=== PATIENT | female | born 1975 | race Caucasian/White ===

== ENCOUNTER 2017-05-24 06:54 | Outpatient (CLI) | payer OTHER ==
--- NOTE | 2017-05-25 09:15 | MMO ---
SCREENING MAMMOGRAPHY: DATE: 05/24/17. COMPARISON: 04/22/16. HISTORY: Screening mammogram. FINDINGS: The patient's mammogram is interpreted with the assistance of computer-aided detection. The breast parenchyma is heterogeneously dense, limiting mammographic assessment. There is no mass, distortion, or concerning calcification. IMPRESSION: BI-RADS 1 - negative. Recommend annual screening mammography. POS: ROCKY
== END 2017-05-24 06:55 | disposition home or self-care (01) ==
LOC: MAMMO 06:54
PROVIDERS: ATTEND Family Medicine
DX: Z12.31 Encounter for screening mammogram for malignant neoplasm of breast (principal)
CPT/HCPCS: 77067; G0202

== ENCOUNTER 2020-06-24 06:44 | Outpatient (CLI) | payer OTHER ==
[2020-06-24 16:53] LABS: Hemoglobin 14.3 g/dL (12.0-16.0); Mean Corpuscular HGB CONC 34.2 G/DL (32.0-36.0); Mean Corpuscular Hemoglobin 31.5 PG (27.0-33.0); Mean Corpuscular Volume 92.1 fl (80.0-100.0); Mean Platelet Volume 12.5 fl (7.4-10.4); Platelet Count 203 10x3/uL (130-400); RBC Distribution Width 12.1 % (11.5-14.5); Red Blood Cell (RBC) Count 4.54 10x6/uL (3.90-5.20)
[2020-06-24 17:21] LABS: BHCG - Serum Negative (NEGATIVE); Pregs Control Background? CLEAR/WHITE (CLR/WHITE); Pregs Control Bar Appear? YES (CONTROL BAR)
== END 2020-06-24 06:45 | disposition home or self-care (01) ==
LOC: LABBT 06:44
PROVIDERS: ATTEND Student in an Organized Health Care Education/Training Program
DX: Z01.812 Encounter for preprocedural laboratory examination (principal); N39.3 Stress incontinence (female) (male)
CPT/HCPCS: 84703; 85027; 86850; 86900; 86901

== ENCOUNTER 2020-06-29 10:01 | Day surgery (SDC) | payer OTHER ==
[2020-06-26 11:39] VITALS: BMI 32.5
[~2020-06-29 10:01] MED LIST: Dexamethasone 20 MG/5 ML VIAL ONE; Lidocaine 1% PF 5 ML VIAL ONE; Metoclopramide HCl 10 MG/2 ML VIAL ONE; Ondansetron PF 4 MG/2 ML Vial ONE; PROPOFOL 200 MG/20 ML VIAL ONE; Rocuronium Bromide 10 MG/ML (10ML VIAL) ONE
[2020-06-29] MEDS ORDERED: Gabapentin 300 MG CAP ONE (10:54)
[2020-06-29] MEDS ORDERED: Famotidine/PF 20 mg/2ml Vial ONE ×2 (10:54→10:55)
[2020-06-29] MEDS ORDERED: CeleCOXIB 100 MG CAP ONE (10:55)
[2020-06-29] MEDS ORDERED: Fentanyl 100 MCG/2 ML VIAL ONE (10:55)
[2020-06-29] MEDS ORDERED: Lidocaine 1% w/Epinephrine 1:100K 20 ML VIAL ONE (11:02)
--- NOTE | 2020-06-29 13:57 | OP ---
DATE OF PROCEDURE: 06/29/2020 PREOPERATIVE DIAGNOSIS: Stress urinary incontinence. POSTOPERATIVE DIAGNOSIS: Stress urinary incontinence. PROCEDURES PERFORMED: 1. Midurethral sling with [employer] Advantage Fit. 2. Cystoscopy. [facility] SURGEON: Tanna Hawkins CNM COMPLICATIONS: None. DRAINS: Blanco catheter. PATHOLOGY: None. ESTIMATED BLOOD LOSS: 30 mL. IVF: 1300 mL of crystalloid. URINE OUTPUT: 10 mL of clear urine. ANESTHESIA: General endotracheal. FINDINGS: On cystoscopy: Normal bladder mucosa. No lesions. No perforations. Sling present within the bladder. Ureteral efflux was noted bilaterally, that was vigorous. No other abnormalities within the bladder or urethra. Excellent hemostasis. DESCRIPTION OF PROCEDURE: The patient was taken to the operating room where general anesthesia was obtained without difficulty. The patient was prepped and draped in a sterile fashion in a dorsal lithotomy position. A Blanco catheter was placed in the bladder and a weighted speculum was placed in the vagina. The midurethra was grasped proximal and distally with 2 Allis clamps. The midurethra was infiltrated with 1% lidocaine with epi 10 mL. An incision was made over the midurethra with a #11 blade. Metzenbaums were used to dissect out the midurethral vaginal mucosa as well as the subpubic space bilaterally. The legs were placed in the low lithotomy position. The pubic bone exit sites were marked with a marking pen. A 60 mL of injectable saline was used to hydrodissect the retropubic space bilaterally. The Blanco catheter was deflated and a guidewire was placed within the catheter and the bladder was deviated initially to the patient's right side. The left side of the Advantage Fit [employer] sling was placed without difficulty, on hugging the pubic bone with the trocar. The sling sheath was then secured at the exit site at the pubic bone. The bladder was deviated to the contralateral side and the right side of the sling was then placed in the same fashion. The Blanco catheter was then removed out of the bladder. A 70 degree cystoscope was inserted into the bladder. The bladder was distended with saline and the above findings were noted. No abnormalities were noted. The cystoscope was removed and the Blanco catheter was replaced in the bladder. The sling was then tightened appropriately, ensuring not overtightening at the mid urethra. The sheath was then removed after the tab was cut in the midpoint and the mesh was cut at the pubic bone. Hemostasis was noted of the vaginal incision. The vaginal incision was then closed with 2-0 Vicryl in a running locking fashion. The mesh exit sites of the pubic bone were secured with Dermabond. All instruments were removed out of vagina. The patient tolerated the procedure well. Sponge, lap, and needle counts were correct x2. The patient was taken to recovery room in stable condition. The patient received Ancef 2 g prior to the procedure. Job ID: [id number]
== END 2020-06-29 15:35 | disposition home or self-care (01) ==
LOC: SDC 10:01
PROVIDERS: ATTEND Student in an Organized Health Care Education/Training Program
PROC: 0TSD0ZZ Reposition Urethra, Open Approach (ICD-10-PCS; principal; 2020-06-29)
DX: N39.3 Stress incontinence (female) (male) (principal); F17.210 Nicotine dependence, cigarettes, uncomplicated; F41.9 Anxiety disorder, unspecified; F32.9 Major depressive disorder, single episode, unspecified; F90.9 Attention-deficit hyperactivity disorder, unspecified type; G43.909 Migraine, unspecified, not intractable, without status migrainosus; Z79.899 Other long term (current) drug therapy
CPT/HCPCS: C1781; J0690; J1100; J2405; J2704; J2765; J3010; S0028

== ENCOUNTER 2021-11-03 15:55 | Inpatient (IN) | payer BC ==
[2021-11-03 16:54] LABS: Hemoglobin 14.8 g/dL (12.0-16.0); Mean Corpuscular HGB CONC 32.9 g/dL (32.0-36.0); Mean Corpuscular Hemoglobin 31.7 pg (27.0-31.0); Mean Corpuscular Volume 96.6 fL (78.0-98.0); Mean Platelet Volume 9.1 fL (7.4-10.4); Platelet Count 191 thou/uL (130-400); RBC Distribution Width 11.7 % (11.5-14.5); Red Blood Cell (RBC) Count 4.66 mill/uL (4.20-5.40); White Blood Cell (WBC) Count 20.1 thou/uL (4.8-10.8)
[2021-11-03 17:01] LABS: BHCG - Serum Negative (NEGATIVE); Pregs Control Background? CLEAR/WHITE (CLR/WHITE); Pregs Control Bar Appear? YES (CONTROL BAR)
[2021-11-03 17:05] LABS: ALT (SGPT) 15 U/L (8-55); AST (SGOT) 13 U/L (5-34); Albumin 4.5 g/dL (3.5-5.0); Alkaline Phosphatase 68 U/L (40-110); Anion Gap 13 mmol/L (10-20); BUN (Urea Nitrogen) 15 mg/dL (7.0-18.7); Bilirubin, Total 0.5 mg/dL (0.2-1.2); Calc. Creatinine Clearance 0 mL/min (70-130); Carbon Dioxide 19 mmol/L (22-29); Chloride 108 mmol/L (98-107); Globulin 2.8 g/dL (2.4-3.5); Glucose 105 mg/dL (70-105); Lipase 17 U/L (8-78); Potassium 3.6 mmol/L (3.5-5.1); Protein, Total 7.3 g/dL (6.0-8.3); Sodium 136 mmol/L (136-145)
[2021-11-03 17:10] LABS: Band 3 % (5-11); Lymphocytes 6 % (21-51); MDiff Complete? YES; Monocytes 4 % (0-10); Neutrophil 86 % (42-75); Platelet Morphology Comment Appears Adequate; RBC Morphology Normal; Reactive Lymphocytes 1 % (0-10)
[2021-11-03 17:32] LABS: Bacteria/HPF 2+ HPF (None Seen); Bilirubin Negative (Negative); Blood, Urine 3+ (Negative); Glucose, Urine (Dipstick) Normal (Negative); Ketone, Urine 40 mg/dL (Negative); Leukocyte 75 Leu/uL (Negative); Nitrite Negative (Negative); Protein, Urine (Dipstick) 70 mg/dL (Neg-Trace); RBC/HPF Greater than 50 HPF (0-3); Specific Gravity, Urine 1.033 (1.002-1.036); Urobilinogen Normal mg/dL (Less than 2); pH, Urine 5.5 (5.0-9.0)
[2021-11-03 17:34] LABS: Clarity Turbid (Clear)
[2021-11-03] MEDS ORDERED: Morphine 4 MG/ML VIAL ONE ×2 (17:47→18:43)
[2021-11-03] MEDS ORDERED: Ondansetron PF 4 MG/2 ML Vial ONE (17:48)
[2021-11-03] MEDS ORDERED: Ketorolac Tromethamine 30 MG/ML VIAL ONE (17:48)
[2021-11-03] MEDS ORDERED: Cefepime 2 GM VIAL ONE (18:14)
[2021-11-03] MEDS ORDERED: Vancomycin 1 GM/200 ML BAG ONE (18:14)
[2021-11-03] MEDS ORDERED: Acetaminophen 325 MG TAB PO PRN (20:15)
[2021-11-03] MEDS ORDERED: Ondansetron PF 4 MG/2 ML Vial IVP PRN (20:15)
[2021-11-03] MEDS ORDERED: Ondansetron ODT 4 MG TAB SL PRN (20:15)
[2021-11-03] MEDS: Morphine 4 MG/ML VIAL SLOW IVP PRN (20:37)
[2021-11-03] MEDS: Sodium Chloride 0.9% 1,000 ML IV SCH (20:38)
[2021-11-03 23:06] VITALS: BMI 35.3
[2021-11-04] MEDS: Morphine 4 MG/ML VIAL SLOW IVP PRN ×2 (00:43→06:34)
[2021-11-04] MEDS: Sodium Chloride 0.9% 1,000 ML IV SCH ×3 (02:57→18:07)
[2021-11-04] MEDS ORDERED: Ondansetron PF 4 MG/2 ML Vial IVP PRN (08:39)
[2021-11-04] MEDS ORDERED: Vancomycin 1 GM in Premix Bag 1 BAG IVPB SCH (09:00)
[2021-11-04] MEDS: HYDROcodone/Acetaminophen 7.5/325 mg Tablet PO PRN ×3 (09:18→18:24)
[2021-11-04] MEDS: Loratadine 10 MG TAB PO SCH (09:19)
[2021-11-04] MEDS: Cefepime 2 GM in Sodium Chloride 0.9% 100 ML IVPB SCH ×2 (09:19→19:58)
[2021-11-04] MEDS: Topiramate 25 MG TAB PO SCH ×2 (09:19→19:59)
[2021-11-04] MEDS: Vancomycin HCl 1.25 GM in Sodium Chloride 0.9% 250 ML 250 ML IVPB SCH ×2 (09:54→21:45)
[2021-11-04] MEDS: Acetaminophen 325 MG TAB PO PRN (12:18)
[2021-11-04 12:19] LABS: SARS-CoV-2 PCR by NAA Not Detected (NotDetected)
[2021-11-04] MEDS: Montelukast Sodium 10 mg Tablet PO SCH (19:59)
[2021-11-05] MEDS: HYDROcodone/Acetaminophen 7.5/325 mg Tablet PO PRN ×4 (00:07→18:31)
[2021-11-05] MEDS: Sodium Chloride 0.9% 1,000 ML IV SCH ×4 (03:55→19:11)
[2021-11-05] MEDS: Acetaminophen 325 MG TAB PO PRN ×2 (04:45→20:02)
[2021-11-05] MEDS ORDERED: Iopamidol 15 ML ONE (06:24)
[2021-11-05 06:48] LABS: Anion Gap 16 mmol/L (10-20); BUN (Urea Nitrogen) 27 mg/dL (7.0-18.7); Calc. Creatinine Clearance 113 mL/min (70-130); Calcium 8.3 mg/dL (7.8-10.44); Carbon Dioxide 16 mmol/L (22-29); Chloride 110 mmol/L (98-107); Glucose 88 mg/dL (70-105); Potassium 3.6 mmol/L (3.5-5.1); Sodium 138 mmol/L (136-145)
[2021-11-05 06:52] LABS: Band 34 % (5-11); Hemoglobin 12.7 g/dL (12.0-16.0); Lymphocytes 4 % (21-51); MDiff Complete? YES; Mean Corpuscular HGB CONC 33.4 g/dL (32.0-36.0); Mean Corpuscular Hemoglobin 32.4 pg (27.0-31.0); Mean Corpuscular Volume 97.2 fL (78.0-98.0); Monocytes 10 % (0-10); Neutrophil 52 % (42-75); Platelet Count 80 thou/uL (130-400); Platelet Morphology Comment Appears Decreased; RBC Distribution Width 11.9 % (11.5-14.5); RBC Morphology Normal; Red Blood Cell (RBC) Count 3.92 mill/uL (4.20-5.40); White Blood Cell (WBC) Count 31.9 thou/uL (4.8-10.8)
[2021-11-05] MEDS ORDERED: Fentanyl 100 MCG/2 ML VIAL ONE ×2 (07:17)
[2021-11-05] MEDS ORDERED: Dexamethasone 20 MG/5 ML VIAL ONE (07:39)
[2021-11-05] MEDS ORDERED: PROPOFOL 200 MG/20 ML VIAL ONE (07:39)
[2021-11-05] MEDS ORDERED: Lidocaine 1% PF 5 ML VIAL ONE (07:39)
[2021-11-05] MEDS ORDERED: Ondansetron PF 4 MG/2 ML Vial ONE (07:39)
[2021-11-05] MEDS ORDERED: PHENYLEPHRINE-NS 100 MCG/ML 10 ML SYRINGE ONE (07:39)
[2021-11-05] MEDS ORDERED: B & O ONE (07:56)
[2021-11-05 08:00] LABS: INR-International Normal Ratio 1.5; Prothrombin Time 18.3 sec (12.0-14.7)
[2021-11-05 08:01] LABS: Fibrinogen 498 mg/dL (253-463); Platelet Count 76 thou/uL (130-400)
[2021-11-05 08:03] LABS: PTT 53.8 sec (22.9-36.1)
[2021-11-05 08:18] LABS: D-Dimer Test Greater than 20.00 *mcg/mL (0.27-0.43)
[2021-11-05] MEDS ORDERED: Ondansetron HCl/PF 4 MG/2 ML Vial IVP PRN (08:20)
[2021-11-05] MEDS ORDERED: Promethazine HCl 25 MG/ML VIAL IM PRN (08:20)
[2021-11-05] MEDS ORDERED: Promethazine HCl 25 MG/ML VIAL IVPB PRN (08:20)
[2021-11-05] MEDS: Cefepime 2 GM in Sodium Chloride 0.9% 100 ML IVPB SCH ×2 (09:27→20:02)
[2021-11-05] MEDS: Topiramate 25 MG TAB PO SCH (09:35)
[2021-11-05] MEDS: Loratadine 10 MG TAB PO SCH (09:36)
[2021-11-05] MEDS: Vancomycin HCl 1.25 GM in Sodium Chloride 0.9% 250 ML 250 ML IVPB SCH (11:27)
[2021-11-05] MEDS: Montelukast Sodium 10 mg Tablet PO SCH (20:02)
[2021-11-06] MEDS: HYDROcodone/Acetaminophen 7.5/325 mg Tablet PO PRN ×3 (00:43→20:17)
[2021-11-06] MEDS: Sodium Chloride 0.9% 1,000 ML IV SCH ×3 (03:23→20:17)
[2021-11-06 06:29] LABS: Band 24 % (5-11); Hemoglobin 11.4 g/dL (12.0-16.0); Lymphocytes 12 % (21-51); MDiff Complete? YES; Mean Corpuscular HGB CONC 33.4 g/dL (32.0-36.0); Mean Corpuscular Hemoglobin 32.7 pg (27.0-31.0); Mean Corpuscular Volume 97.9 fL (78.0-98.0); Mean Platelet Volume 10.4 fL (7.4-10.4); Monocytes 3 % (0-10); Neutrophil 61 % (42-75); Platelet Count 73 thou/uL (130-400); Platelet Morphology Comment Appears Decreased; White Blood Cell (WBC) Count 27.5 thou/uL (4.8-10.8)
[2021-11-06 06:36] LABS: Anion Gap 12 mmol/L (10-20); BUN (Urea Nitrogen) 17 mg/dL (7.0-18.7); Calc. Creatinine Clearance 158 mL/min (70-130); Calcium 8.3 mg/dL (7.8-10.44); Carbon Dioxide 17 mmol/L (22-29); Chloride 114 mmol/L (98-107); Glucose 83 mg/dL (70-105); Potassium 3.7 mmol/L (3.5-5.1); Sodium 139 mmol/L (136-145)
[2021-11-06] MEDS: Loratadine 10 MG TAB PO SCH (09:07)
[2021-11-06] MEDS: Cefepime 2 GM in Sodium Chloride 0.9% 100 ML IVPB SCH ×2 (09:07→20:12)
[2021-11-06] MEDS ORDERED: Rizatriptan Benzoate 10 MG MLT TAB PO SCH (12:35)
[2021-11-06] MEDS: Montelukast Sodium 10 mg Tablet PO SCH (20:17)
[2021-11-07] MEDS: HYDROcodone/Acetaminophen 7.5/325 mg Tablet PO PRN ×3 (03:05→20:25)
[2021-11-07] MEDS: Melatonin 3 MG TAB PO PRN (03:06)
[2021-11-07 07:06] LABS: Anion Gap 10 mmol/L (10-20); BUN (Urea Nitrogen) 13 mg/dL (7.0-18.7); Calc. Creatinine Clearance 172 mL/min (70-130); Calcium 8.2 mg/dL (7.8-10.44); Carbon Dioxide 19 mmol/L (22-29); Chloride 115 mmol/L (98-107); Glucose 103 mg/dL (70-105); Potassium 3.7 mmol/L (3.5-5.1); Sodium 140 mmol/L (136-145)
[2021-11-07 08:02] LABS: Hemoglobin 10.6 g/dL (12.0-16.0); Mean Corpuscular HGB CONC 33.9 g/dL (32.0-36.0); Mean Corpuscular Hemoglobin 32.7 pg (27.0-31.0); Mean Corpuscular Volume 96.6 fL (78.0-98.0); Red Blood Cell (RBC) Count 3.25 mill/uL (4.20-5.40)
[2021-11-07 08:22] LABS: Eosinophils 1 % (0-10); Lymphocytes 20 % (21-51); MDiff Complete? YES; Mean Platelet Volume 10.2 fL (7.4-10.4); Monocytes 1 % (0-10); Neutrophil 78 % (42-75); Platelet Count 77 thou/uL (130-400); Platelet Morphology Comment Appears Decreased; RBC Distribution Width 11.8 % (11.5-14.5); White Blood Cell (WBC) Count 15.5 thou/uL (4.8-10.8)
[2021-11-07] MEDS: Loratadine 10 MG TAB PO SCH (09:13)
[2021-11-07] MEDS: Sodium Chloride 0.9% 1,000 ML IV SCH (09:19)
[2021-11-07] MEDS: Ciprofloxacin 500 MG TAB PO SCH (20:25)
[2021-11-07] MEDS: Montelukast Sodium 10 mg Tablet PO SCH (20:25)
[2021-11-07] MEDS ORDERED: Zolpidem Tartrate 5 MG TAB PO SCH (21:00)
[2021-11-08] MEDS: HYDROcodone/Acetaminophen 7.5/325 mg Tablet PO PRN (03:55)
[2021-11-08] MEDS: Melatonin 3 MG TAB PO PRN (03:59)
[2021-11-08] MEDS: Ciprofloxacin 500 MG TAB PO SCH (05:43)
[2021-11-08 07:00] LABS: Anion Gap 11 mmol/L (10-20); BUN (Urea Nitrogen) 9 mg/dL (7.0-18.7); Calc. Creatinine Clearance 177 mL/min (70-130); Calcium 7.5 mg/dL (7.8-10.44); Carbon Dioxide 20 mmol/L (22-29); Chloride 112 mmol/L (98-107); Glucose 115 mg/dL (70-105); Potassium 3.5 mmol/L (3.5-5.1); Sodium 139 mmol/L (136-145)
[2021-11-08 07:10] LABS: Hemoglobin 11.2 g/dL (12.0-16.0); Mean Corpuscular HGB CONC 33.6 g/dL (32.0-36.0); Mean Corpuscular Hemoglobin 32.2 pg (27.0-31.0); Mean Platelet Volume 9.5 fL (7.4-10.4); Platelet Count 85 thou/uL (130-400); RBC Distribution Width 11.8 % (11.5-14.5); Red Blood Cell (RBC) Count 3.47 mill/uL (4.20-5.40)
[2021-11-08] MEDS: Loratadine 10 MG TAB PO SCH (07:45)
[2021-11-08 07:47] VITALS: BP 130/80; TEMP 98.3
[2021-11-08 08:19] LABS: Band 1 % (5-11); Eosinophils 1 % (0-10); Lymphocytes 31 % (21-51); MDiff Complete? YES; Monocytes 5 % (0-10); Neutrophil 62 % (42-75); Platelet Morphology Comment Appears Decreased; Polychromasia SLIGHT = 2-3 cells (100X) (0-2/hpf)
== END 2021-11-08 10:39 | disposition home or self-care (01) | DRG 853 ==
LOC: ERS 15:55 → T4-B 19:01 → OBSVTOIN 11-04 10:45
PROVIDERS: ADMIT Internal Medicine; ATTEND Internal Medicine
PROC: 3E03329 Introduction of Other Anti-infective into Peripheral Vein, Percutaneous Approach (ICD-10-PCS; 2021-11-04)
PROC: 0T768DZ Dilation of Right Ureter with Intraluminal Device, Via Natural or Artificial Opening Endoscopic (ICD-10-PCS; principal; 2021-11-05)
PROC: BT1D1ZZ Fluoroscopy of Right Kidney, Ureter and Bladder using Low Osmolar Contrast (ICD-10-PCS; 2021-11-05)
DX: A41.51 Sepsis due to Escherichia coli [E. coli] (principal); D65 Disseminated intravascular coagulation [defibrination syndrome]; N28.0 Ischemia and infarction of kidney; N12 Tubulo-interstitial nephritis, not specified as acute or chronic; Z20.822 Contact with and (suspected) exposure to COVID-19; G43.909 Migraine, unspecified, not intractable, without status migrainosus; F41.9 Anxiety disorder, unspecified; F90.9 Attention-deficit hyperactivity disorder, unspecified type; F17.210 Nicotine dependence, cigarettes, uncomplicated; E86.0 Dehydration; E66.9 Obesity, unspecified; Z68.35 Body mass index [BMI] 35.0-35.9, adult; Z79.899 Other long term (current) drug therapy; Z98.890 Other specified postprocedural states; Z83.3 Family history of diabetes mellitus; Z83.49 Family history of other endocrine, nutritional and metabolic diseases
CPT/HCPCS: 36415; 74176; 74420; 80048; 80053; 81003; 81015; 83690; 84703; 85025; 85049; 85300; 85362; 85379; 85384; 85610; 85730; 87040; 87077; 87086; 87149; 87186; C2617; J0692; J1100; J1885; J2270; J2405; J2704; J3010; J3370; J3490; J7050; Q0162; Q9967; U0003; U0005

== ENCOUNTER 2022-11-18 14:09 | Inpatient (IN) | payer BC ==
[~2022-11-18 14:09] MED LIST changes: -Dexamethasone 20 MG/5 ML VIAL ONE; +Iopamidol-370 76% 500 ML MDV (1 ML CHARGE) ONE; -Lidocaine 1% PF 5 ML VIAL ONE; -Metoclopramide HCl 10 MG/2 ML VIAL ONE; -Ondansetron PF 4 MG/2 ML Vial ONE; -PROPOFOL 200 MG/20 ML VIAL ONE; -Rocuronium Bromide 10 MG/ML (10ML VIAL) ONE
[2022-11-18 14:37] LABS: #Eosinphils 0.1 thou/uL (0.0-0.7); #Monocytes 0.5 thou/uL (0.11-0.59); #Neutrophils 7.2 thou/uL (1.40-6.50); %Basophils 0.3 % (0.0-1.0); %Lymphocytes 20.5 % (21.0-51.0); %Monocytes 4.9 % (0.0-10.0); %Neutrophils 73.1 % (42.0-75.0); Hemoglobin 13.1 g/dL (12.0-16.0); Mean Corpuscular HGB CONC 32.9 g/dL (32.0-36.0); Mean Corpuscular Hemoglobin 30.8 pg (27.0-31.0); Mean Corpuscular Volume 93.6 fl (78.0-98.0); Mean Platelet Volume 11.4 fL (7.4-10.4); Platelet Count 197 10x3/uL (130-400); RBC Distribution Width 12.7 % (11.5-14.5); Red Blood Cell (RBC) Count 4.25 mill/uL (4.20-5.40); White Blood Cell (WBC) Count 9.8 10x3/uL (4.8-10.8)
[2022-11-18 15:07] LABS: ALT (SGPT) 12 U/L (8-55); AST (SGOT) 11 U/L (5-34); Albumin 4.4 g/dL (3.5-5.0); Alkaline Phosphatase 74 U/L (40-110); Anion Gap 13 mmol/L (10-20); BUN (Urea Nitrogen) 7 mg/dL (7.0-18.7); Bilirubin, Total 0.2 mg/dL (0.2-1.2); Calc. Creatinine Clearance 0 mL/min (70-130); Calcium 9.3 mg/dL (7.8-10.44); Carbon Dioxide 21 mmol/L (22-29); Chloride 106 mmol/L (98-107); Estimated GFR 96; Globulin 3.2 g/dL (2.4-3.5); Glucose 110 mg/dL (70-105); Potassium 3.3 mmol/L (3.5-5.1); Protein, Total 7.6 g/dL (6.0-8.3); Sodium 137 mmol/L (136-145)
[2022-11-18 15:17] LABS: BHCG - Serum Negative (NEGATIVE); Pregs Control Background? CLEAR/WHITE (CLR/WHITE); Pregs Control Bar Appear? YES (CONTROL BAR)
[2022-11-18] MEDS ORDERED: Cefepime 2 GM VIAL ONE (15:49)
[2022-11-18] MEDS ORDERED: Ondansetron PF 4 MG/2 ML Vial IVP PRN (16:04)
[2022-11-18] MEDS ORDERED: Ondansetron ODT 4 MG TAB PO PRN (16:04)
[2022-11-18 18:02] VITALS: BMI 35.9
[2022-11-18] MEDS: Nicotine 14 MG PATCH TD SCH (18:41)
[2022-11-18] MEDS: Sodium Chloride 0.9% 1,000 ML IV SCH (18:42)
[2022-11-18] MEDS ORDERED: Zolpidem Tartrate 5 MG TAB PO SCH (22:45)
[2022-11-18] MEDS: HYDROcodone/Acetaminophen 5/325 mg Tablet PO PRN (22:53)
[2022-11-19] MEDS: Cefepime 2 GM in Sodium Chloride 0.9% 100 ML IVPB SCH ×2 (03:40→16:30)
[2022-11-19] MEDS: Acetaminophen 325 MG TAB PO PRN ×2 (03:40→13:24)
[2022-11-19] MEDS: Vancomycin 1.5 GRAM/300 ML BAG 1.5 GM in Premix Bag 1 BAG IVPB SCH ×2 (05:37→18:19)
[2022-11-19] MEDS: Sodium Chloride 0.9% 1,000 ML IV SCH ×2 (05:37→18:19)
[2022-11-19 06:46] LABS: #Eosinphils 0.2 thou/uL (0.0-0.7); #Monocytes 0.5 thou/uL (0.11-0.59); #Neutrophils 4.4 thou/uL (1.40-6.50); %Basophils 0.6 % (0.0-1.0); %Eosinophils 3.4 % (0.0-10.0); %Lymphocytes 27.4 % (21.0-51.0); %Monocytes 6.6 % (0.0-10.0); %Neutrophils 61.7 % (42.0-75.0); Hemoglobin 12.6 g/dL (12.0-16.0); Mean Corpuscular HGB CONC 32.3 g/dL (32.0-36.0); Mean Corpuscular Hemoglobin 30.9 pg (27.0-31.0); Mean Corpuscular Volume 95.6 fl (78.0-98.0); Mean Platelet Volume 11.5 fL (7.4-10.4); Platelet Count 183 10x3/uL (130-400); RBC Distribution Width 12.5 % (11.5-14.5); Red Blood Cell (RBC) Count 4.08 mill/uL (4.20-5.40); White Blood Cell (WBC) Count 7.1 10x3/uL (4.8-10.8)
[2022-11-19 07:42] LABS: Anion Gap 12 mmol/L (10-20); BUN (Urea Nitrogen) 6 mg/dL (7.0-18.7); Calc. Creatinine Clearance 187 mL/min (70-130); Calcium 8.8 mg/dL (7.8-10.44); Carbon Dioxide 20 mmol/L (22-29); Chloride 108 mmol/L (98-107); Estimated GFR 110; Glucose 96 mg/dL (70-105); Potassium 4.1 mmol/L (3.5-5.1); Sodium 136 mmol/L (136-145)
[2022-11-19] MEDS: Bupropion 150 MG XL TAB PO SCH (08:51)
[2022-11-19] MEDS ORDERED: Sertraline 100 MG TAB PO SCH (13:15)
[2022-11-19] MEDS: Nicotine 14 MG PATCH TD SCH (16:28)
[2022-11-19] MEDS: HYDROcodone/Acetaminophen 5/325 mg Tablet PO PRN (18:23)
[2022-11-19] MEDS: Zolpidem Tartrate 5 MG TAB PO SCH (20:07)
[2022-11-19] MEDS: Montelukast Sodium 10 mg Tablet PO SCH (20:08)
[2022-11-20] MEDS: Cefepime 2 GM in Sodium Chloride 0.9% 100 ML IVPB SCH (04:51)
[2022-11-20 05:29] LABS: #Eosinphils 0.2 thou/uL (0.0-0.7); #Monocytes 0.5 thou/uL (0.11-0.59); #Neutrophils 3.6 thou/uL (1.40-6.50); %Basophils 0.7 % (0.0-1.0); %Lymphocytes 28.3 % (21.0-51.0); %Monocytes 7.4 % (0.0-10.0); %Neutrophils 59.3 % (42.0-75.0); Hemoglobin 13.3 g/dL (12.0-16.0); Mean Corpuscular HGB CONC 33.1 g/dL (32.0-36.0); Mean Corpuscular Hemoglobin 31.7 pg (27.0-31.0); Mean Corpuscular Volume 95.7 fl (78.0-98.0); Mean Platelet Volume 11.2 fL (7.4-10.4); Platelet Count 205 10x3/uL (130-400); RBC Distribution Width 12.4 % (11.5-14.5); White Blood Cell (WBC) Count 6.1 10x3/uL (4.8-10.8)
[2022-11-20] MEDS: Acetaminophen 325 MG TAB PO PRN (06:23)
[2022-11-20 06:24] LABS: Anion Gap 12 mmol/L (10-20); BUN (Urea Nitrogen) 10 mg/dL (7.0-18.7); Calc. Creatinine Clearance 178 mL/min (70-130); Calcium 8.8 mg/dL (7.8-10.44); Carbon Dioxide 23 mmol/L (22-29); Chloride 105 mmol/L (98-107); Estimated GFR 109; Glucose 95 mg/dL (70-105); Potassium 4.4 mmol/L (3.5-5.1); Sodium 136 mmol/L (136-145)
[2022-11-20] MEDS: Sodium Chloride 0.9% 1,000 ML IV SCH ×2 (06:24→23:54)
[2022-11-20] MEDS: Vancomycin 1.5 GRAM/300 ML BAG 1.5 GM in Premix Bag 1 BAG IVPB SCH ×2 (06:47→17:56)
[2022-11-20] MEDS: Bupropion 150 MG XL TAB PO SCH (08:01)
[2022-11-20] MEDS: Sertraline 100 MG TAB PO SCH (08:01)
[2022-11-20] MEDS: Nicotine 14 MG PATCH TD SCH (14:55)
[2022-11-20] MEDS: Zolpidem Tartrate 5 MG TAB PO SCH (20:32)
[2022-11-20] MEDS: HYDROcodone/Acetaminophen 5/325 mg Tablet PO PRN (20:32)
[2022-11-20] MEDS: Montelukast Sodium 10 mg Tablet PO SCH (20:33)
[2022-11-21] MEDS: Vancomycin 1.5 GRAM/300 ML BAG 1.5 GM in Premix Bag 1 BAG IVPB SCH (05:26)
[2022-11-21] MEDS: Acetaminophen 325 MG TAB PO PRN (05:28)
[2022-11-21 06:58] LABS: #Eosinphils 0.2 thou/uL (0.0-0.7); #Monocytes 0.4 thou/uL (0.11-0.59); %Basophils 0.6 % (0.0-1.0); %Eosinophils 3.2 % (0.0-10.0); %Lymphocytes 26.6 % (21.0-51.0); %Monocytes 6.1 % (0.0-10.0); Hemoglobin 13.5 g/dL (12.0-16.0); Mean Corpuscular HGB CONC 32.5 g/dL (32.0-36.0); Mean Corpuscular Hemoglobin 30.3 pg (27.0-31.0); Mean Platelet Volume 11.2 fL (7.4-10.4); Platelet Count 203 10x3/uL (130-400); RBC Distribution Width 12.2 % (11.5-14.5); Red Blood Cell (RBC) Count 4.46 mill/uL (4.20-5.40); White Blood Cell (WBC) Count 6.3 10x3/uL (4.8-10.8)
[2022-11-21 07:27] LABS: Anion Gap 12 mmol/L (10-20); BUN (Urea Nitrogen) 10 mg/dL (7.0-18.7); Calc. Creatinine Clearance 176 mL/min (70-130); Calcium 8.9 mg/dL (7.8-10.44); Carbon Dioxide 23 mmol/L (22-29); Chloride 105 mmol/L (98-107); Estimated GFR 108; Glucose 91 mg/dL (70-105); Potassium 4.3 mmol/L (3.5-5.1); Sodium 136 mmol/L (136-145)
[2022-11-21 07:53] VITALS: BP 135/88; TEMP 97.7
[2022-11-21] MEDS: Bupropion 150 MG XL TAB PO SCH (08:32)
[2022-11-21] MEDS: Sertraline 100 MG TAB PO SCH (08:33)
[2022-11-21] MEDS: Sodium Chloride 0.9% 1,000 ML IV SCH (11:31)
== END 2022-11-21 12:40 | disposition home or self-care (01) | DRG 872 ==
LOC: ERS 14:09 → T4-B 16:08
PROVIDERS: ADMIT Internal Medicine; ATTEND Internal Medicine
DX: A41.02 Sepsis due to Methicillin resistant Staphylococcus aureus (principal); L03.116 Cellulitis of left lower limb; G43.909 Migraine, unspecified, not intractable, without status migrainosus; F41.9 Anxiety disorder, unspecified; F90.9 Attention-deficit hyperactivity disorder, unspecified type; F17.210 Nicotine dependence, cigarettes, uncomplicated; E87.6 Hypokalemia; Z79.899 Other long term (current) drug therapy
CPT/HCPCS: 36415; 80048; 80053; 80202; 83605; 84703; 85025; 87040; 87070; 87077; 87186; 87205; 93005; J0692; J3370; J3490; J7030; J7050; Q9967

== ENCOUNTER 2023-05-02 13:38 | Outpatient (CLI) | payer BC | END 2023-05-02 13:39 | disposition home or self-care (01) | LOC: MRI 13:38 | PROVIDERS: ATTEND Family Medicine | DX: M51.16 Intervertebral disc disorders with radiculopathy, lumbar region (principal); M47.26 Other spondylosis with radiculopathy, lumbar region; M79.606 Pain in leg, unspecified; M46.1 Sacroiliitis, not elsewhere classified | CPT/HCPCS: 72100; 72148 ==

== ENCOUNTER 2023-05-04 08:58 | Outpatient (CLI) | payer BC | END 2023-05-04 08:59 | disposition home or self-care (01) | LOC: BICRAD 08:58 | PROVIDERS: ATTEND Family Medicine | DX: M25.561 Pain in right knee (principal); M17.11 Unilateral primary osteoarthritis, right knee ==